=== PATIENT | female | born 1995 | race Caucasian/White ===

== ENCOUNTER 2020-01-12 15:31 | Inpatient (IN) | payer OTHER ==
[~2020-01-12] VITALS: Ht 149.9 cm; Wt 43.3 kg
[~2020-01-12 15:31] MED LIST: ADDERALL; BACTRIM; ZOFRAN4 MG PO; [UNRECOGNIZED DRUG - REMARK]
[2020-01-12 15:40] VITALS: BP 122/67
[2020-01-12 16:20] LABS: URINE BLOOD 3+ (Negative); URINE CLARITY TURBID; URINE COLOR YELLOW; URINE GLUCOSE-RANDOM NEGATIVE (Negative); URINE NITRITE-REFLEX NEGATIVE (Negative); URINE PROTEIN 2+ (Negative); URINE SPECIFIC GRAVITY >= 1.030 (1.005-1.030)
[2020-01-12 16:21] LABS: URINE BILIRUBIN 1+ (Negative); URINE KETONES 3+ (Negative); URINE LEUKOCYTES-REFLEX 2+ (Negative)
[2020-01-12 16:25] LABS: HEMATOCRIT 34.5 % (37.0-47.0); HEMOGLOBIN 11.6 gm/dL (12.0-15.0); MCH 29.5 pg (26.0-34.0); MCHC 33.7 g/dL (28.0-37.0); MCV 87.3 fL (80.0-100.0); MPV 9.9 fl. (7.2-11.1); NUCLEATED RBCS 0 /100WBC; PLATELET COUNT* 236 thou/uL (150-400); RBC 3.95 mil/uL (4.20-5.00); RDW-CV 13.4 % (10.5-14.5); WBC 21.8 thou/uL (4.0-11.0)
[2020-01-12 16:29] LABS: ICTOTEST (BILI CONFIRMATORY) Negative (Negative)
[2020-01-12 16:32] LABS: BACTERIA-REFLEX >30 Many /HPF (None Seen); SQUAMOUS >10 Many /LPF (0-3); URINE RBC 3-10 Few /HPF (0-2); URINE WBC-REFLEX >25 Many /HPF (0-5)
[2020-01-12 16:33] LABS: CASTS None Seen /LPF (None Seen); CRYSTALS None Seen /LPF (None Seen)
[2020-01-12 16:35] LABS: CALCIUM 8.3 mg/dL (8.5-10.1); CREATININE 0.6 mg/dL (0.6-1.3); POTASSIUM 3.5 mmol/L (3.5-5.1)
[2020-01-12 16:39] LABS: ALBUMIN 3.7 g/dL (3.4-5.0); TOTAL BILIRUBIN 1.1 mg/dL (<0.1-1.0); TOTAL PROTEIN 7.7 g/dL (6.4-8.2)
[2020-01-12 17:05] LABS: ABSOLUTE NEUTROPHILS 20.5 thou/uL (1.6-8.1); PLATELET ESTIMATE ADEQUATE
[2020-01-12 17:06] LABS: ABSOLUTE LYMPHOCYTES 0.4 thou/uL (0.8-5.3); ABSOLUTE MONOCYTES 0.9 thou/uL (0.0-1.2)
[2020-01-12 22:43] VITALS: BP 105/62
[2020-01-12 23:00] VITALS: BP 116/65
[2020-01-13 04:32] VITALS: BP 95/51
[2020-01-13 05:02] LABS: HEMATOCRIT 30.8 % (37.0-47.0); HEMOGLOBIN 10.2 gm/dL (12.0-15.0); MCH 29.6 pg (26.0-34.0); MCHC 33.3 g/dL (28.0-37.0); MCV 88.7 fL (80.0-100.0); RBC 3.47 mil/uL (4.20-5.00); RDW-CV 13.5 % (10.5-14.5); WBC 17.9 thou/uL (4.0-11.0)
[2020-01-13 05:35] LABS: CALCIUM 7.4 mg/dL (8.5-10.1); CREATININE 0.6 mg/dL (0.6-1.3); MAGNESIUM 1.7 mg/dL (1.8-2.4); POTASSIUM 3.2 mmol/L (3.5-5.1)
[2020-01-13 07:53] LABS: AMP/METHAMP Negative (Negative); BARBITURATES Negative (Negative); BENZODIAZEPINES Negative (Negative); COCAINE Negative (Negative); METHADONE Negative (Negative); OPIATES POSITIVE (Negative); PCP Negative (Negative); THC POSITIVE (Negative)
[2020-01-13 08:00] VITALS: BP 116/67
[2020-01-13 11:14] VITALS: BP 111/67
--- NOTE | 2020-01-13 11:54 | EKG ---
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
[2020-01-13 14:44] VITALS: BP 111/67
[2020-01-13 20:00] VITALS: BP 105/71
[2020-01-14 03:47] LABS: HEMATOCRIT 32.5 % (37.0-47.0); HEMOGLOBIN 11.1 gm/dL (12.0-15.0); MCH 30.5 pg (26.0-34.0); MCHC 34.2 g/dL (28.0-37.0); MCV 89.1 fL (80.0-100.0); MPV 10.7 fl. (7.2-11.1); RBC 3.65 mil/uL (4.20-5.00); RDW-CV 13.8 % (10.5-14.5); WBC 8.9 thou/uL (4.0-11.0)
[2020-01-14 04:01] LABS: CALCIUM 8.1 mg/dL (8.5-10.1); CREATININE 0.6 mg/dL (0.6-1.3)
[2020-01-14 08:30] VITALS: BP 108/74
[2020-01-14 16:30] VITALS: BP 110/78
[2020-01-14 21:08] VITALS: BP 133/83
[2020-01-15 03:55] LABS: HEMATOCRIT 35.7 % (37.0-47.0); HEMOGLOBIN 12.1 gm/dL (12.0-15.0); MCH 29.6 pg (26.0-34.0); MPV 10.5 fl. (7.2-11.1); RBC 4.11 mil/uL (4.20-5.00); RDW-CV 13.3 % (10.5-14.5); WBC 7.2 thou/uL (4.0-11.0)
[2020-01-15 04:22] LABS: CREATININE 0.7 mg/dL (0.6-1.3); POTASSIUM 3.7 mmol/L (3.5-5.1)
[2020-01-15] MEDS ORDERED: CIPRO500 M1 PO (08:03)
[2020-01-15 08:30] VITALS: BP 120/68
[2020-01-15 10:45] VITALS: BP 120/68
[2020-01-15 11:12] VITALS: BP 120/68
[2020-01-15 12:13] VITALS: BP 120/68
== END 2020-01-15 11:35 | disposition home or self-care (01) | DRG 872 ==
LOC: M.ERS 15:31 → M.2W 17:31 → M.TBA-ER 17:31 → M.2W 22:36 → M.ORTHSURG 01-13 20:00
PROVIDERS: Physician Assistant; ADMIT Internal Medicine
DX: A41.9 Sepsis, unspecified organism (principal); N12 Tubulo-interstitial nephritis, not specified as acute or chronic; F12.90 Cannabis use, unspecified, uncomplicated; F17.210 Nicotine dependence, cigarettes, uncomplicated; I95.9 Hypotension, unspecified; K52.9 Noninfective gastroenteritis and colitis, unspecified; Z91.040 Latex allergy status; Z79.899 Other long term (current) drug therapy